=== PATIENT | female | born 1940 | race Caucasian/White ===

== ENCOUNTER 2017-01-20 11:00 | Emergency (ER) | payer OTHER ==
[~2017-01-20] VITALS: Ht 160 cm; Wt 74.6 kg
[~2017-01-20 11:00] MED LIST: ASCORBIC ACID500 M3 PO; LEVOTHYROXINE75 MCG PO; LO-DOSE ASPIRIN81 M2 PO; MEGARED OMEGA-1 EACH PO; OSTEO BI-FLEX1 EAC1 PO; SYNTHROID75 MCG PO; TRIAMTERENE-HC1 EAC1 PO; TYLENOL EXTRA500 MG PO; TYLENOL WITH C1 EACH PO; VITAMIN D31000 UNIT PO; VITAMIN E100 UNIT PO
[2017-01-20 12:10] LABS: HEMATOCRIT 40.4 % (36.0-46.0); MCH 31.4 PG (29.0-34.0); MCHC 32.9 G/DL (30.0-36.0); MCV 95.5 FL (83-99); MEAN PLAT.VOLUME 10.4 uM^3 (9.5-12.4); PLATELET COUNT 337 K/uL (156-360); RBC DIS.WIDTH-CV 12.5 % (11.8-14.6); RBC DIS.WIDTH-SD 44.1 % (39-53); RED BLOOD COUNT 4.23 M/uL (3.80-5.20); WHITE BLOOD COUNT 9.4 K/uL (4.1-10.2)
[2017-01-20 12:24] LABS: CHLORIDE 104 mEq/L (99-109); POTASSIUM 4.1 mEq/L (3.7-5.4); SODIUM 143 mEq/L (136-147)
[2017-01-20 12:25] LABS: GLUCOSE 103 mg/dL (70-99)
[2017-01-20 12:27] LABS: ANION GAP 12 MEQ/L (2-14)
[2017-01-20 12:29] LABS: GFR ESTIMATE (CALCULATED) 51 mL/min/
[2017-01-20 12:30] LABS: UREA NITROGEN (BUN) 19 mg/dL (9-23)
[2017-01-20 13:45] LABS: TROP-I INTERPRETATION NEGATIVE; TROPONIN-I < 0.01 ng/mL (0.0-0.30)
[2017-01-20 15:02] LABS: TROP-I INTERPRETATION NEGATIVE; TROPONIN-I < 0.01 ng/mL (0.0-0.30)
[2017-01-20 16:17] VITALS: BP 131/87
== END 2017-01-20 16:19 | disposition home or self-care (01) ==
LOC: EME 11:00
PROVIDERS: Emergency Medicine
PROC: 0HQ1XZZ Repair Face Skin, External Approach (ICD-10-PCS; principal; 2017-01-20)
DX: R55 Syncope and collapse (principal); S01.81XA Laceration without foreign body of other part of head, initial encounter; S00.83XA Contusion of other part of head, initial encounter; S00.12XA Contusion of left eyelid and periocular area, initial encounter; R73.9 Hyperglycemia, unspecified; W01.198A Fall on same level from slipping, tripping and stumbling with subsequent striking against other object, initial encounter; I10 Essential (primary) hypertension; E03.9 Hypothyroidism, unspecified; Z88.0 Allergy status to penicillin
CPT/HCPCS: 70450; 70486; 71020; 80048; 84484; 85027; 93005; 99281; 99284

== ENCOUNTER 2017-02-09 18:55 | Emergency (ER) | payer OTHER ==
[~2017-02-09] VITALS: Ht 160 cm; Wt 74.6 kg
[2017-02-09 20:09] LABS: HEMATOCRIT 37.3 % (36.0-46.0); MCH 32.2 PG (29.0-34.0); MCV 97.6 FL (83-99); MEAN PLAT.VOLUME 10.2 uM^3 (9.5-12.4); PLATELET COUNT 262 K/uL (156-360); RBC DIS.WIDTH-CV 12.9 % (11.8-14.6); RBC DIS.WIDTH-SD 45.7 % (39-53); RED BLOOD COUNT 3.82 M/uL (3.80-5.20); WHITE BLOOD COUNT 7.1 K/uL (4.1-10.2)
[2017-02-09 20:19] LABS: CHLORIDE 105 mEq/L (99-109); POTASSIUM 3.5 mEq/L (3.7-5.4); SODIUM 142 mEq/L (136-147)
[2017-02-09 20:21] LABS: GLUCOSE 96 mg/dL (70-99)
[2017-02-09 20:22] LABS: ANION GAP 11 MEQ/L (2-14)
[2017-02-09 20:25] LABS: GFR ESTIMATE (CALCULATED) 57 mL/min/
[2017-02-09 20:26] LABS: UREA NITROGEN (BUN) 19 mg/dL (9-23)
[2017-02-09 20:30] LABS: TROP-I INTERPRETATION NEGATIVE; TROPONIN-I < 0.01 ng/mL (0.0-0.30)
[2017-02-09 21:27] VITALS: BP 155/85
== END 2017-02-09 21:27 | disposition home or self-care (01) ==
LOC: EME 18:55
PROVIDERS: Emergency Medicine
DX: R51 Headache (principal); I10 Essential (primary) hypertension; Z88.0 Allergy status to penicillin
CPT/HCPCS: 71020; 80048; 83605; 84484; 85027; 93005; 99281; 99283

== ENCOUNTER → 2018-04-12 | Outpatient (CLI) | payer OTHER ==
[~2018-04-12] VITALS: Ht 157.5 cm; Wt 75.8 kg
[~2018-04-12] MED LIST changes: +K-DUR20 MEQ PO; +PROBIOTIC1 EAC1 PO; +VITAMIN B-6100 MG PO; +VITAMIN B122500 MCG PO
[2018-04-12 11:09] LABS: CHLORIDE 103 mEq/L (99-109); POTASSIUM 3.8 mEq/L (3.7-5.4); SODIUM 141 mEq/L (136-147)
[2018-04-12 11:10] LABS: GLUCOSE 94 mg/dL (70-99)
[2018-04-12 11:14] LABS: GFR ESTIMATE (CALCULATED) 57 mL/min/
[2018-04-12 11:15] LABS: UREA NITROGEN (BUN) 16 mg/dL (9-23)
== END | disposition home or self-care (01) ==
LOC: AMB 09:54
PROVIDERS: Anesthesiology
PROC: 0DBH8ZX Excision of Cecum, Via Natural or Artificial Opening Endoscopic, Diagnostic (ICD-10-PCS; principal; 2018-04-12)
DX: D12.0 Benign neoplasm of cecum (principal); K57.30 Diverticulosis of large intestine without perforation or abscess without bleeding; Z79.82 Long term (current) use of aspirin; I10 Essential (primary) hypertension; E03.9 Hypothyroidism, unspecified; K21.9 Gastro-esophageal reflux disease without esophagitis; Z90.49 Acquired absence of other specified parts of digestive tract; Z90.710 Acquired absence of both cervix and uterus; Z82.69 Family history of other diseases of the musculoskeletal system and connective tissue; Z80.6 Family history of leukemia; Z80.8 Family history of malignant neoplasm of other organs or systems
CPT/HCPCS: 80048; 88305